=== PATIENT | female | born 1960 | race Caucasian/White ===

== ENCOUNTER 2016-11-26 12:05 | Emergency (ER) | payer SELFPAY ==
[~2016-11-26] VITALS: Ht 157.5 cm; Wt 50.0 kg
[~2016-11-26 12:05] MED LIST: CLOB-50 TOP; COEN400C PO; LIPI20TA PO; LORA-373 PO; LORA0.5T PO; PROM25TA5 PO; ZOFR8TAB PO
[2016-11-26 12:07] VITALS: BP 136/83; PULSE 80; RESP 12; TEMP 98.1; O2SAT 98
== END 2016-11-26 16:35 | disposition left against medical advice (07) ==
LOC: NED 12:05
DX: R07.89 Other chest pain (principal)
CPT/HCPCS: 99281